=== PATIENT | female | born 1955 | race Caucasian/White ===

== ENCOUNTER 2020-05-31 08:32 | Outpatient (REF) | payer MEDICARE, SELFPAY ==
--- NOTE | 2020-05-31 08:45 | MM_ITS ---
EXAMINATION: MM SCREENING DIGITAL BREAST TOMOSYNTHESIS, BILATERAL CLINICAL INFORMATION: Screening. Asymptomatic. The lifetime risk of breast cancer based on the Tyrer-Cuzick Model is 11%. COMPARISON: Mammography: 05/08/2019, and prior studies dating back to 05/06/2012 TECHNIQUE: Digital breast tomosynthesis is performed in both the craniocaudal and mediolateral oblique views along with computer-aided detection (CAD). Synthesized 2D images are generated from the tomosynthesis. Additional left CC view is provided. FINDINGS: There are scattered areas of fibroglandular density (ACR BI-RADS breast composition Category b). Breast tissue composition borders on predominantly fatty. Background stromal densities are stable including island fibroglandular asymmetry anterior 12:00 left breast. There is no developing density or interval mass or architectural abnormality. Dermal lesion again seen overlying the posterior medial right breast. There are no abnormal calcifications. The axilla and skin contours are unremarkable. MM/MM tomosynthesis screening BI IMPRESSION: No significant changes from prior exams. ASSESSMENT: BI-RADS 2: Benign RECOMMENDATION: Routine annual mammography screening. This patient's information was entered into a reminder system with a target due date for their next mammogram.
== END 2020-05-31 08:33 | disposition home or self-care (01) ==
LOC: HO.MAMMO 08:32
PROVIDERS: PCP Internal Medicine; Visit Provider Internal Medicine
DX: Z12.31 Encounter for screening mammogram for malignant neoplasm of breast (principal)
CPT/HCPCS: 77063; 77067

== ENCOUNTER 2020-08-03 07:00 | Outpatient (REF) | payer MEDICARE, SELFPAY ==
--- NOTE | ~2020-08-03 | XR_ITS ---
EXAMINATION: XR LUMBOSACRAL SPINE CLINICAL INFORMATION: Chronic low back pain. COMPARISON: None. TECHNIQUE: 3 views of the lumbosacral spine. FINDINGS: There is normal lumbar lordosis. The vertebral heights and alignment appears normal. There is mild levoscoliosis lumbar spine. No lytic or sclerotic process seen. The paravertebral soft tissues are normal. XR/XR lumbar spine 2-3V IMPRESSION: Mild levoscoliosis. Otherwise unremarkable lumbar spine exam.
== END 2020-08-03 07:01 | disposition home or self-care (01) ==
LOC: HO.XRAY 07:00
PROVIDERS: PCP Internal Medicine; Visit Provider Chiropractor
DX: M54.5 Low back pain (principal)
CPT/HCPCS: 72100

== ENCOUNTER 2020-12-24 07:56 | Outpatient (REF) | payer MEDICARE, SELFPAY ==
--- NOTE | ~2020-12-24 | XR_ITS ---
EXAMINATION: XR THORACOLUMBAR SPINE CLINICAL INFORMATION: Back pain and spasm. COMPARISON: None. TECHNIQUE: AP and lateral views of the thoracic spine. FINDINGS: There is no evidence of acute fracture of the thoracic spine. Pedicles are intact. Multilevel degenerative marginal spurring is seen with some disc space narrowing. No abnormal paraspinal line bulge. No destructive bony lesions are seen. There is degenerative disc disease with spurring noted at C4-C7. XR/XR thoracic spine 2V IMPRESSION: Mild degenerative change of the thoracic spine without evidence of acute fracture or destructive bony lesion. Cervical spondylosis C4-C7.
== END 2020-12-24 07:57 | disposition home or self-care (01) ==
LOC: HO.XRAY 07:56
PROVIDERS: Absent Provider Internal Medicine; PCP Internal Medicine; Visit Provider Nurse Practitioner Women's Health
DX: M41.24 Other idiopathic scoliosis, thoracic region (principal)
CPT/HCPCS: 72070

== ENCOUNTER 2021-02-19 07:26 | Outpatient (REF) | payer MEDICARE, SELFPAY ==
[2021-02-19 07:38] LABS: MANUAL DIFF FLAG NO
[2021-02-19 08:01] LABS: Basophils Percent Auto 0.4 % (0-2); Eosinophils Absolute Auto 0.1 X10*3/uL (0.0-0.4); Hematocrit 40.2 % (37-47); Hemoglobin 13.5 g/dl (12.0-16.0); Imm Gran Abs Auto 0.01 X10*3/uL (0.00-0.03); Imm Gran Pct Auto 0.2 % (0.0-0.4); Lymphocytes Absolute Auto 1.8 X10*3/uL (1.2-4.9); Lymphocytes Percent Auto 36.6 % (20-40); Mean Corpuscular HGB Conc 33.6 g/dl (31.0-35.0); Mean Corpuscular Hemoglobin 32.2 pg (27.0-33.0); Mean Corpuscular Volume 95.9 fL (80-98); Mean Platelet Volume 10.4 fL (9.4-12.3); Monocytes Absolute Auto 0.5 X10*3/uL (0.1-1.2); Monocytes Percent Auto 10.3 % (2-11); Neutrophils Absolute Auto 2.5 X10*3/uL (2.0-8.3); Neutrophils Percent Auto 50.5 % (45-73); Platelet Count 260 X10*3/uL (160-400); Red Blood Count 4.19 X10*6/uL (4.20-5.50)
[2021-02-19 08:20] LABS: Alanine Aminotransferase 26 U/L (0-31); Albumin Level 4.3 g/dL (3.5-5.0); Alkaline Phosphatase 69 U/L (39-117); Anion Gap 11 (12-20); Aspartate Amino Transferase 25 U/L (5-31); Bilirubin Total 0.2 mg/dL (0.0-1.0); Blood Urea Nitrogen 20 mg/dL (9-16); Calcium 9.7 mg/dL (8.4-10.2); Carbon Dioxide 28 mmol/L (22-29); Chloride 107 mmol/L (96-108); Cholesterol 212 mg/dL; Estimated Glomerular Filt Rate > 60; Glucose Fasting 107 mg/dL (60-99); HDL Cholesterol 75 mg/dL; LDL Cholesterol Calculated 122 mg/dl; Potassium 4.4 mmol/L (3.3-5.1); Sodium 142 mmol/L (135-145); Total Protein 6.9 g/dL (6.5-8.0); Triglycerides 78 mg/dL
[2021-02-19 08:41] LABS: Free T4 (Free Thyroxine) 0.96 ng/dL (0.71-1.85); Vitamin D 25-OH Total 51.1 ng/mL (>30)
== END 2021-02-19 07:27 | disposition home or self-care (01) ==
LOC: HO.LAB 07:26
PROVIDERS: PCP Internal Medicine; Visit Provider Internal Medicine
DX: E78.00 Pure hypercholesterolemia, unspecified (principal); M54.9 Dorsalgia, unspecified; R63.4 Abnormal weight loss; M85.80 Other specified disorders of bone density and structure, unspecified site
CPT/HCPCS: 36415; 80053; 80061; 82306; 84439; 84443; 85025

== ENCOUNTER 2021-06-29 12:36 | Outpatient (REF) | payer MEDICARE, SELFPAY ==
--- NOTE | ~2021-06-29 | MM_ITS ---
EXAMINATION: MM SCREENING DIGITAL BREAST TOMOSYNTHESIS, BILATERAL CLINICAL INFORMATION: Screening. Asymptomatic. The lifetime risk of breast cancer based on the Tyrer-Cuzick Model is 11%. COMPARISON: Mammography: 05/31/2020, 05/08/2019, 04/09/2018 TECHNIQUE: Digital breast tomosynthesis is performed in both the craniocaudal and mediolateral oblique views along with computer-aided detection (CAD). Synthesized 2D images are generated from the tomosynthesis. FINDINGS: There are scattered areas of fibroglandular density (ACR BI-RADS breast composition Category b). Breast tissue composition borders on predominantly fatty replaced. Background fibroglandular and stromal densities are stable. There is no interval mass or architectural abnormality or developing density. No abnormal calcifications. There is a dermal lesion overlying the posterior lower inner right breast again noted. No significant changes from prior studies. MM/MM tomosynthesis screening BI IMPRESSION: No mammographic evidence of malignancy. ASSESSMENT: BI-RADS 2: Benign RECOMMENDATION: Routine annual mammography screening. This patient's information was entered into a reminder system with a target due date for their next mammogram.
== END 2021-06-29 12:37 | disposition home or self-care (01) ==
LOC: HO.MAMMO 12:36
PROVIDERS: PCP Internal Medicine; Visit Provider Internal Medicine
DX: Z12.31 Encounter for screening mammogram for malignant neoplasm of breast (principal)
CPT/HCPCS: 77063; 77067

== ENCOUNTER 2022-03-31 07:28 | Outpatient (REF) | payer MEDICARE, SELFPAY ==
[2022-03-31 07:45] LABS: MANUAL DIFF FLAG NO
[2022-03-31 08:24] LABS: Basophils Percent Auto 0.8 % (0-2); Eosinophils Absolute Auto 0.4 X10*3/uL (0.0-0.4); Eosinophils Percent Auto 7.8 % (0-4); Hematocrit 39.7 % (37.0-47.0); Imm Gran Abs Auto 0.01 X10*3/uL (0.00-0.03); Imm Gran Pct Auto 0.2 % (0.0-0.4); Lymphocytes Absolute Auto 1.9 X10*3/uL (1.2-4.9); Mean Corpuscular HGB Conc 32.7 g/dl (31.0-35.0); Mean Corpuscular Hemoglobin 31.6 pg (27.0-33.0); Mean Corpuscular Volume 96.4 fL (80.0-98.0); Mean Platelet Volume 10.8 fL (9.4-12.3); Monocytes Absolute Auto 0.6 X10*3/uL (0.1-1.2); Monocytes Percent Auto 11.5 % (2-11); Neutrophils Absolute Auto 1.9 x10*3/uL (2.0-8.3); Neutrophils Percent Auto 39.7 % (45-73); Platelet Count 272 X10*3/uL (160-400); Red Blood Count 4.12 X10*6/uL (4.20-5.50); Red Cell Distribution Width 13.2 % (11.0-16.0); White Blood Count 4.9 X10*3/uL (4.8-10.8)
[2022-03-31 08:46] LABS: Alanine Aminotransferase 22 U/L (0-31); Albumin Level 4.1 g/dL (3.5-5.0); Alkaline Phosphatase 72 U/L (39-117); Anion Gap 13 (12-20); Aspartate Amino Transferase 23 U/L (5-31); Bilirubin Total 0.6 mg/dL (0.0-1.0); Blood Urea Nitrogen 20 mg/dL (9-16); Calcium 9.5 mg/dL (8.4-10.2); Carbon Dioxide 27 mmol/L (22-29); Chloride 105 mmol/L (96-108); Cholesterol 219 mg/dL; Estimated Glomerular Filt Rate > 60; Glucose Fasting 94 mg/dL (60-99); HDL Cholesterol 65 mg/dL; LDL Cholesterol Calculated 135 mg/dl; Potassium 4.4 mmol/L (3.3-5.1); Sodium 141 mmol/L (135-145); Total Protein 6.8 g/dL (6.5-8.0); Triglycerides 96 mg/dL
== END 2022-03-31 07:29 | disposition home or self-care (01) ==
LOC: HO.LAB 07:28
PROVIDERS: PCP Internal Medicine; Visit Provider Internal Medicine
DX: E78.00 Pure hypercholesterolemia, unspecified (principal); M54.9 Dorsalgia, unspecified
CPT/HCPCS: 36415; 80053; 80061; 85025

== ENCOUNTER 2022-04-12 12:47 | Outpatient (REF) | payer MEDICARE, SELFPAY ==
--- NOTE | ~2022-04-12 | MM_ITS ---
EXAMINATION: BONE DENSITOMETRY CLINICAL INDICATION: Postmenopausal. COMPARISON: Baseline BD dated 06/26/2013. TECHNIQUE: Using a [employer] DXA System (software version: 13.1) manufactured by [employer], dual-energy x-ray absorptiometry was performed of the lumbar spine and left hip. The images are of good technical quality. Summary results are attached. FINDINGS: AP SPINE L1-L4: Current: BMD 0.778 g/cm2, Z-score -2.4, T-score -3.3, osteoporosis, 6.4% decrease from baseline (<5% change is not significant). Baseline: BMD 0.831 g/cm2. LEFT FEMUR, NECK: Current: BMD 0.797 g/cm2, Z-score -0.6, T-score -1.7, osteopenia. Baseline: BMD 0.859 g/cm2. LEFT FEMUR, TOTAL: Current: BMD 0.820 g/cm2, Z-score -0.6, T-score -1.5, osteopenia, 4.7% decrease from baseline (<5% change is not significant). Baseline: BMD 0.860 g/cm2. IDENTIFIED RISK FACTORS: Menopause, family history (parental hip fracture). HISTORY OF FRACTURE: None listed. MEDICATIONS: Vitamin D. MM/XR DEXA axial skeleton IMPRESSION: 1. DIAGNOSIS: Osteoporosis based on the lowest T-score value of -3.3 in the lumbar spine applying World Health Organization criteria. 2. 10-YEAR FRACTURE RISK PREDICTION, FRAX: According to the guidelines, FRAX calculation should only be performed on patients in the osteopenia bone density category. Therefore, FRAX was not performed on this patient. 3. Treatment Recommendations: NOF guidelines recommend consideration for treatment in postmenopausal women and men age 50 and older presenting with the following: -A hip or vertebral (clinical or morphometric) fracture. -T-score less than or equal to -2.5 at the femoral neck or spine after appropriate evaluation to exclude secondary causes. -Low bone mass at the hip or spine and a 10-year fracture probability by FRAX of greater than or equal to 3% for hip fracture or greater than or equal to 20% for major osteoporotic fracture based on the [place] adapted WHO algorithm. 4. Other Recommendations: All treatment decisions require clinical judgment and consideration of individual patient factors, including patient preferences, comorbidities, previous drug use, risk factors not captured in the FRAX model (e.g. frailty, falls, vitamin D deficiency, increased bone turnover, interval significant decline in bone density) and possible under or overestimation of fracture risk by FRAX. Additional medical evaluation for secondary cause of low bone mineral density may be appropriate. FUTURE SCAN RECOMMENDATION: People with diagnosed cases of osteoporosis or at high risk for fracture should have regular bone mineral density tests. For patients eligible for Medicare, routine testing is allowed once every 2 years. The testing frequency can be increased to one year for patients who have rapidly progressing disease, those who are receiving or discontinuing medical therapy to restore bone mass, or have additional risk factors.
== END 2022-04-12 12:48 | disposition home or self-care (01) ==
LOC: HO.MAMMO 12:47
PROVIDERS: PCP Internal Medicine; Visit Provider Internal Medicine
DX: Z13.820 Encounter for screening for osteoporosis (principal); Z78.0 Asymptomatic menopausal state
CPT/HCPCS: 77080

== ENCOUNTER 2022-07-01 10:36 | Outpatient (REF) | payer MEDICARE, SELFPAY ==
--- NOTE | ~2022-07-01 | MM_ITS ---
EXAMINATION: MM SCREENING DIGITAL BREAST TOMOSYNTHESIS, BILATERAL CLINICAL INFORMATION: Screening. Asymptomatic. The lifetime risk of breast cancer based on the Tyrer-Cuzick Model is 8%. COMPARISON: Mammography: 06/29/2021, 05/31/2020, 05/08/2019 TECHNIQUE: Digital breast tomosynthesis is performed in both the craniocaudal and mediolateral oblique views along with computer-aided detection (CAD). Synthesized 2D images are generated from the tomosynthesis. FINDINGS: There are scattered areas of fibroglandular density (ACR BI-RADS breast composition Category b). There are no significant masses, abnormal calcifications, or other abnormalities. Breast tissue composition borders on predominantly fatty. Background stromal and fibroglandular densities are stable. There is a dermal lesion again seen overlying the posterior medial right breast. The axilla are unremarkable. MM/MM tomosynthesis screening BI IMPRESSION: No mammographic evidence of malignancy. ASSESSMENT: BI-RADS 2: Benign RECOMMENDATION: Routine annual mammography screening. This patient's information was entered into a reminder system with a target due date for their next mammogram.
== END 2022-07-01 10:37 | disposition home or self-care (01) ==
LOC: HO.MAMMO 10:36
PROVIDERS: PCP Internal Medicine; Visit Provider Internal Medicine
DX: Z12.31 Encounter for screening mammogram for malignant neoplasm of breast (principal)
CPT/HCPCS: 77063; 77067

== ENCOUNTER 2023-04-11 07:48 | Outpatient (REF) | payer MEDICARE, SELFPAY ==
[2023-04-11 08:10] LABS: MANUAL DIFF FLAG NO
[2023-04-11 08:34] LABS: Basophils Percent Auto 0.8 % (0-2); Eosinophils Absolute Auto 0.1 X10*3/uL (0.0-0.4); Eosinophils Percent Auto 2.1 % (0-4); Hematocrit 41.5 % (37.0-47.0); Hemoglobin 13.7 g/dl (12.0-16.0); Imm Gran Abs Auto 0.01 X10*3/uL (0.00-0.03); Imm Gran Pct Auto 0.2 % (0.0-0.4); Lymphocytes Absolute Auto 1.9 X10*3/uL (1.2-4.9); Lymphocytes Percent Auto 38.4 % (20-40); Mean Corpuscular Hemoglobin 32.2 pg (27.0-33.0); Mean Corpuscular Volume 97.4 fL (80.0-98.0); Mean Platelet Volume 10.6 fL (9.4-12.3); Monocytes Absolute Auto 0.5 X10*3/uL (0.1-1.2); Monocytes Percent Auto 10.5 % (2-11); Neutrophils Absolute Auto 2.3 x10*3/uL (2.0-8.3); Platelet Count 306 X10*3/uL (160-400); Red Blood Count 4.26 X10*6/uL (4.20-5.50); Red Cell Distribution Width 12.8 % (11.0-16.0); White Blood Count 4.8 X10*3/uL (4.8-10.8)
[2023-04-11 08:55] LABS: Alanine Aminotransferase 33 U/L (0-31); Albumin Level 4.2 g/dL (3.5-5.0); Alkaline Phosphatase 81 U/L (39-117); Anion Gap 12 (12-20); Aspartate Amino Transferase 24 U/L (5-31); Bilirubin Total 0.6 mg/dL (0.0-1.0); Blood Urea Nitrogen 19 mg/dL (9-16); Calcium 9.8 mg/dL (8.4-10.2); Carbon Dioxide 28 mmol/L (22-29); Chloride 106 mmol/L (96-108); Cholesterol 227 mg/dL (<200); Estimated Glomerular Filt Rate > 60; Glucose Fasting 97 mg/dL (60-99); HDL Cholesterol 72 mg/dL (>40); LDL Cholesterol Calculated 141 mg/dL (<100); Potassium 4.6 mmol/L (3.3-5.1); Sodium 141 mmol/L (135-145); Total Protein 7.4 g/dL (6.5-8.0); Triglycerides 71 mg/dL (<150)
[2023-04-11 09:13] LABS: Vitamin D 25-OH Total 79.5 ng/mL (>30)
== END 2023-04-11 07:49 | disposition home or self-care (01) ==
LOC: HO.LAB 07:48
PROVIDERS: PCP Internal Medicine; Visit Provider Internal Medicine
DX: E78.00 Pure hypercholesterolemia, unspecified (principal); M85.80 Other specified disorders of bone density and structure, unspecified site; M54.9 Dorsalgia, unspecified
CPT/HCPCS: 36415; 80053; 80061; 82306; 85025

== ENCOUNTER 2023-07-04 08:10 | Outpatient (REF) | payer MEDICARE, SELFPAY | END 2023-07-04 08:11 | disposition home or self-care (01) | LOC: HO.MAMMO 08:10 | PROVIDERS: PCP Internal Medicine; Visit Provider Internal Medicine | DX: Z12.31 Encounter for screening mammogram for malignant neoplasm of breast (principal) | CPT/HCPCS: 77063; 77067 ==

== ENCOUNTER → 2023-07-04 08:45 | Outpatient (BNV) | payer MEDICARE, SELFPAY | PROVIDERS: PCP Internal Medicine; Visit Provider Radiology Diagnostic Radiology | DX: Z12.31 Encounter for screening mammogram for malignant neoplasm of breast (principal) | CPT/HCPCS: 77063; 77067 ==

== ENCOUNTER 2024-03-28 09:40 | Outpatient (REF) | payer MEDICARE, SELFPAY ==
[2024-03-28 10:47] LABS: Basophils Percent Auto 0.4 % (0-2); Eosinophils Absolute Auto 0.1 X10*3/uL (0.0-0.4); Hematocrit 39.5 % (37.0-47.0); Hemoglobin 13.5 g/dl (12.0-16.0); Imm Gran Abs Auto 0.02 X10*3/uL (0.00-0.03); Imm Gran Pct Auto 0.4 % (0.0-0.4); Lymphocytes Absolute Auto 1.8 X10*3/uL (1.2-4.9); Lymphocytes Percent Auto 35.5 % (20-40); MANUAL DIFF FLAG NO; Mean Corpuscular HGB Conc 34.2 g/dl (31.0-35.0); Mean Corpuscular Hemoglobin 32.5 pg (27.0-33.0); Mean Platelet Volume 10.3 fL (9.4-12.3); Monocytes Absolute Auto 0.6 X10*3/uL (0.1-1.2); Monocytes Percent Auto 11.6 % (2-11); Neutrophils Absolute Auto 2.5 x10*3/uL (2.0-8.3); Neutrophils Percent Auto 50.1 % (45-73); Platelet Count 258 X10*3/uL (160-400); Red Blood Count 4.16 X10*6/uL (4.20-5.50); Red Cell Distribution Width 13.2 % (11.0-16.0)
[2024-03-28 12:06] LABS: Alanine Aminotransferase 19 U/L (0-31); Albumin Level 4.2 g/dL (3.5-5.0); Alkaline Phosphatase 48 U/L (39-117); Anion Gap 15 (12-20); Aspartate Amino Transferase 24 U/L (5-31); Bilirubin Total 0.5 mg/dL (0.0-1.0); Blood Urea Nitrogen 22 mg/dL (9-16); Calcium 9.4 mg/dL (8.4-10.2); Carbon Dioxide 25 mmol/L (22-29); Chloride 104 mmol/L (96-108); Cholesterol 227 mg/dL (<200); Estimated Glomerular Filt Rate > 60; Glucose Fasting 89 mg/dL (60-99); HDL Cholesterol 68 mg/dL (>40); LDL Cholesterol Calculated 145 mg/dL (<100); Potassium 4.2 mmol/L (3.3-5.1); Sodium 140 mmol/L (135-145); Total Protein 7.2 g/dL (6.5-8.0); Triglycerides 71 mg/dL (<150)
[2024-03-28 12:25] LABS: Vitamin D 25-OH Total 66.9 ng/mL (>30)
== END 2024-03-28 09:41 | disposition home or self-care (01) ==
LOC: HO.LAB 09:40
PROVIDERS: PCP Internal Medicine; Visit Provider Internal Medicine
DX: E78.00 Pure hypercholesterolemia, unspecified (principal); M54.50 Low back pain, unspecified; M81.0 Age-related osteoporosis without current pathological fracture
CPT/HCPCS: 36415; 80053; 80061; 82306; 85025

== ENCOUNTER 2024-05-09 07:48 | Outpatient (REF) | payer MEDICARE, SELFPAY ==
[2024-05-09 09:04] LABS: Cholesterol 220 mg/dL (<200); HDL Cholesterol 71 mg/dL (>40); LDL Cholesterol Calculated 135 mg/dL (<100); Triglycerides 71 mg/dL (<150)
== END 2024-05-09 07:49 | disposition home or self-care (01) ==
LOC: HO.LAB 07:48
PROVIDERS: PCP Internal Medicine; Visit Provider Internal Medicine
DX: E78.00 Pure hypercholesterolemia, unspecified (principal)
CPT/HCPCS: 36415; 80061

== ENCOUNTER 2024-06-22 09:51 | Emergency (ER) | payer MEDICARE, SELFPAY ==
[2024-06-22 09:57] VITALS: BP 162/88; PULSE 75; RESP 16; TEMP 36.4; O2SAT 98; BMI 30.7
--- NOTE | 2024-06-22 10:26 | ED.EYEPROB ---
HPI - Eye Problem General Chief complaint: Eye Problems Stated complaint: eye swollen Time Seen by Provider: 06/22/24 10:20 Source: patient Mode of arrival: ambulatory Limitations: no limitations History of Present Illness ED Provider: JUAN M YEN PA-C HPI Narrative: 68 year old female presents to the ED today for evaluation of right eye tearing, irritation, redness and swelling x2-3 days. Denies significant pain. Does not recall getting anything in the eye. Denies morning crusting. Denies injury/ trauma. Denies FB sensation. Denies recent upper respiratory symptoms (congestion, cough, sinus pain, fever). She has been applying hot tea bags without improvement. Trialed and OTC oral antihistamine yesterday without improvement. Endorses mild blurred vision to right eye secondary to excessive tearing. No vision loss or double vision. Patient does wear glasses however does not use contact lenses. 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 No hx DM. Related Data Previous Rx's ?Medication ?Instructions ?Recorded erythromycin 5 mg/gram (0.5 %) eye 1 appl ophthalmic-Right QID 7 days 06/22/24 ointment #3.5 grams Allergies Allergy/AdvReac Type Severity Reaction Status Date / Time No Known Allergies Allergy Verified 06/22/24 09:58 Review of Systems Review of Systems: Constitutional: No fever, chills, fatigue, night sweats, weight changes ENT/Mouth: No ear pain, hearing loss, nasal congestion, sinus pain, rhinorrhea, sore throat Eyes: No vision changes, discharge, +eye irritation/ tearing Cardio: No chest pain, palpitations, SCOTT, orthopnea, peripheral edema Pulm: No SOB, cough, sputum, wheezing, dyspnea, hemoptysis GI: No nausea, vomiting, hematemesis, abdominal pain, diarrhea, constipation, hematochezia, melena : No irregular bleeding, dysuria, frequency, urgency, hesitancy, hematuria, flank pain, urinary flow changes, urinary incontinence or retention MSK: No back pain, neck pain, joint pain, myalgias Skin: No lesions, rashes Neuro: No weakness, numbness, paresthesias, LOC, dizziness, headache Psych: No anxiety/panic, depression, SI/HI, AH/VH All other systems reviewed and are negative. [facility] Past Medical History Attestation statement: The following information was validated with the patient. Source: old records reviewed and nursing notes reviewed Social History Social History Advance Directives: Yes Advance Directives Information Provided: Yes Advance Directives on File: No Do you have a plan to hurt others: No Plan Physical Exam Vital Signs: Vital Signs: Last Vital Signs Temp 97.6 F 06/22/24 11:34 Pulse 75 06/22/24 11:34 Resp 16 06/22/24 11:34 BP 162/88 H 06/22/24 11:34 Pulse Ox 98 06/22/24 11:34 O2 Del Method Room Air 06/22/24 11:34 BMI result Body Mass Index 30.7 hypertensive, afebrile General: Well appearing, in no acute distress. Skin: Warm, dry, intact. No rashes or lesions. Head: Normocephalic, atraumatic. EENT: Hearing is intact b/l. Moist mucous membranes.?nontender to percussion over frontal/ maxillary sinuses. No periorbital swelling. No enophthalmous or exopthalmous. EOMs intact without pain or entrapment. PERRLA. Positive photophobia to right eye. No obvious foreign body or abrasion. Noted conjunctival injection and chemosis noted to right eye. No hazy cornea. No hyphema. Visual acuity (uncorrected) OD 20/70, OS 20/100. IOP OD 17, IOP OS 12. On tetracaine exam, there is reuptake noted to 4oclock suggesting abrasion to cornea w/o fb. no dendritic lesions. Neck: Supple without LAD Cardiac: Chest wall symmetric. RRR Lungs: Normal respiratory effort without accessory muscle use Neuro: AOx3. Normal speech. Ambulating with steady gait. Course Course Course Narrative: Physical exam consistent with corneal abrasion to right eye. Erythromycin ointment sent to pharmacy for treatment. Informed patient that they will need to follow-up with conveyor line battery charger. She will be calling them tomorrow morning. Patient has remained stable throughout ED visit today. Discussed worrisome signs and symptoms and when to return to the ED. All questions answered at this time. Patient is agreeable with disposition and stable for discharge. Medications Administered Discontinued Medications Generic Name Dose Route Start Last Admin Trade Name Freq PRN Reason Stop Dose Admin Fluorescein Sodium 1 strip 06/22/24 10:41 06/22/24 10:48 Fluorescein Sodium Strip EYE-RIGHT 06/22/24 10:42 1 strip ONCE ONE Administration Tetracaine HCl 1 drop 06/22/24 10:41 06/22/24 10:48 Tetracaine Hcl/Pf 0.5% Oph Criselda 4 Ml Drops EYE-RIGHT 06/22/24 10:42 1 drop ONCE ONE Administration Medical Decision Making Medical Decision Making MDM Narrative: 68 year old female presents to the ED today for evaluation of right eye tearing, irritation, redness and swelling x2-3 days. Hypertensive, vitals are otherwise wnl. She is nontoxic appearing and in NAD. On exam, there is no periorbital swelling. No enophthalmous or exopthalmous. EOMs intact without pain or entrapment. PERRLA. Positive photophobia to right eye. No obvious foreign body or abrasion. Noted conjunctival injection and chemosis noted to right eye. No hazy cornea. No hyphema. Visual acuity (uncorrected) OD 20/70, OS 20/100. IOP OD 17, IOP OS 12. On tetracaine exam, there is reuptake noted to 4oclock suggesting abrasion to cornea w/o fb. no dendritic lesions. Differential diagnosis includes corneal abrasion, corneal ulceration, corneal FB, allergic vs bacterial conjunctivitis. Lower suspicion for iritis, keratitis. Unlikely pre-septal cellulitis, orbital cellulitis, acute angle closure glaucoma. Plan for tetracaine/fluorescein examination, IOP, VA, and disposition. Differential Diagnosis Differential Diagnoses: The differential diagnosis associated with the presentation includes as above. Admission/Observation Not indicated. External Record Review External record reviewed: Inpatient record Prescription Management I considered prescription management with: Antibiotic (erythromycin ointment) Social Determinants Patient?s care significantly limited by Social Determinants of Health including: Other Social Determinant of Health Critical Care Time Critical Care Time Critical Care Time: No Discharge Plan Discharge Clinical Impression: Corneal abrasion Patient Disposition: Home, Self-Care Instructions: Corneal Abrasion (ED) Additional Instructions: You are noted to have a corneal abrasion to your right cornea. Treatment for this is with antibiotics. Erythromycin ointment has been sent to your pharmacy. Apply this to your eye as directed. Do not wear contacts until you follow up with your provider. As discussed, follow up with your conveyor line battery charger on Sunday morning. Return with new or worsening symptoms. In the case of an emergency, call 911. Prescriptions: New erythromycin 5 mg/gram (0.5 %) ointment 1 appl ophthalmic-Right QID 7 Days Qty: 3.5 0RF Referrals: Toney Pires MD [Primary Care Provider] - Interventions: ED Discharge Assessment Last Done: 06/22/24 11:34 Discharge Date/Time: 06/22/24 11:35 Print Language: Niuean
[2024-06-22] MEDS: Fluorescein Sodium STRIP 1 STRIP EYE-RIGHT (10:48)
[2024-06-22] MEDS: Tetracaine HCl/PF 0.5% Oph Sol 4 ML DROPS 1 DROP EYE-RIGHT (10:48)
[2024-06-22 11:34] VITALS: BP 162/88; PULSE 75; RESP 16; TEMP 36.4; O2SAT 98
== END 2024-06-22 11:35 | disposition home or self-care (01) ==
PROVIDERS: Emergency Provider Emergency Medicine; PCP Internal Medicine
DX: S05.01XA Injury of conjunctiva and corneal abrasion without foreign body, right eye, initial encounter (principal); X58.XXXA Exposure to other specified factors, initial encounter; Y93.89 Activity, other specified; Y92.89 Other specified places as the place of occurrence of the external cause; Y99.8 Other external cause status
CPT/HCPCS: 99282

== ENCOUNTER 2024-08-11 11:53 | Outpatient (REF) | payer MEDICARE, SELFPAY ==
--- NOTE | ~2024-08-11 | MM_ITS ---
EXAMINATION: MM SCREENING DIGITAL BREAST TOMOSYNTHESIS, BILATERAL CLINICAL INFORMATION: Screening. Asymptomatic. COMPARISON: Mammography: Comparison is made with available priors TECHNIQUE: Digital breast mammography with tomosynthesis is performed in both the craniocaudal and mediolateral oblique views along with computer-aided detection (CAD). FINDINGS: There are scattered areas of fibroglandular density (ACR BI-RADS breast composition Category b). There are no significant masses, abnormal calcifications, or other abnormalities. MM/MM tomosynthesis screening BI IMPRESSION: No mammographic evidence of malignancy. ASSESSMENT: BI-RADS BI-RADS 1 - Negative RECOMMENDATION: Routine annual mammography screening. 1 year F/U This examination should not preclude the clinical evaluation of a suspicious palpable abnormality. This patient's information was entered into a reminder system with a target due date for their next mammogram. Electronically signed by: Faye Lundberg DO 08/11/2024 12:47 PM EDT
== END 2024-08-11 11:54 | disposition home or self-care (01) ==
LOC: HO.MAMMO 11:53
PROVIDERS: PCP Internal Medicine; Visit Provider Internal Medicine
DX: Z12.31 Encounter for screening mammogram for malignant neoplasm of breast (principal)
CPT/HCPCS: 77063; 77067

== ENCOUNTER → 2024-08-11 12:15 | Outpatient (BNV) | payer MEDICARE, SELFPAY | PROVIDERS: PCP Internal Medicine; Visit Provider Internal Medicine | DX: Z12.31 Encounter for screening mammogram for malignant neoplasm of breast (principal) | CPT/HCPCS: 77063; 77067 ==

== ENCOUNTER 2025-03-27 08:04 | Outpatient (AMB) | payer MEDICARE, SELFPAY ==
--- OUTSIDE RECORDS SUMMARY | 2025-03-27 08:07 | XMS_ITS | Encounter Summary ---
Author Organization [facility] Address [address] [place] [address] Phone Care Team Providers Care Block Hacker Name Role Phone Toney Pires MD Primary Care Provider Reason for Referral * MRI/CAT Scan - Closed Specialty Diagnoses / Procedures Referred By Contac t Referred To Contact Radiology Diagnoses Other intervertebral disc degeneration, lumbar region Procedures MRI Lumbar Spine Nataliia Rollins NP [address] [place] [address] Phone: tel: fax: [email or web address] Referral ID Status Reason Start Date Expiration Date Visits Re quested Visits Authorized [id number] Closed 03/28/2021 03/28/2022 1 1 Encounter Details Date Type Department Care Team (Latest Contact Info) Description 03/28/2021 Transcribe Orders Virtual Department [address] [place] [id number] Nataliia Rollins NP [address] [place] [phone] [email or web address] Other intervertebral disc degeneration, lumbar region (Primary Dx) Social History Tobacco Use Types Packs/Day Years Used Date Smoking Tobacco: Never Assessed Comments Unknown Sex and Gender Information Value Date Recorded Sex Assigned at Not on file Legal Sex Female 3:14 PM EST Gender Identity Not on file Sexual Orientation Not on file documented as of this encounter Plan of Treatment Not on file documented as of this encounter Results * MRI LUMBAR SPINE (NEURO) WITHOUT CONTRAST (04/22/2021 3:38 PM EST) Anatomical Region Laterality Modality L-spine Magnetic Resonan ce 04/22/2021 5:17 PM EST Impressions 04/22/2021 5:43 PM EST 1.Multilevel facet arthropathy, greatest at L4-L5 with a moderate sized right- sided synovial effusion. 2.Mild multilevel degenerative disc disease. No significant spinal canal or neural foraminal stenosis. 3.Indeterminate and incompletely evaluated 1.5 cm T1 hypointense lesion in the T12 vertebral body. In the absence of known malignancy this is favored to represent focal red marrow or a lipid poor hemangioma; however, follow-up (for example 4 months) and/or further evaluation with CT is recommended to document stability. Narrative 04/22/2021 5:43 PM EST MRI LUMBAR SPINE (NEURO) WITHOUT CONTRAST TECHNIQUE: Multi-sequence, multi-planar MRI of the lumbar spine was performed without intravenous contrast. COMPARISON: None available FINDINGS: Vertebrae: Trace anterolisthesis of L4 on L5. No compression fracture. There is a 1.5 cm rounded lesion in the right inferior posterior aspect of the T12 vertebral body without endplate involvement. The lesion is T1 hypointense and T2/STIR hyperintense. Conus: Normal position at L1-L2. No signal abnormality. Soft Tissue: No paraspinal edema, mass or fluid collection. Findings by level: T12-L1: Axial imaging not performed at this level. No spinal canal or neural foraminal stenosis. L1-L2: Small right paracentral disc protrusion. Mild facet arthropathy with small synovial effusions bilaterally. No spinal canal or neural foraminal stenosis. L2-L3: Mild facet arthropathy with small synovial effusions bilaterally. No spinal canal or neural foraminal stenosis. L3-L4: Mild disc bulge and mild to moderate facet arthropathy with ligamentum flavum thickening and small synovial effusions bilaterally at most mild neural foraminal stenosis bilaterally. No spinal canal stenosis. L4-L5: Trace anterolisthesis with unroofing of the disc superimposed on a small central disc protrusion. Moderate to severe left greater than right facet arthropathy with a moderate right synovial effusion. No neural foraminal stenosis. Mild effacement of the thecal sac without significant spinal canal stenosis. L5-S1: Mild disc bulge and moderate left greater than right facet arthropathy. Mild left neural foraminal stenosis. No right neural foraminal stenosis and no spinal canal stenosis. Procedure Note Jaylen Aviles MD - 04/22/2021 MRI LUMBAR SPINE (NEURO) WITHOUT CONTRAST TECHNIQUE: Multi-sequence, multi-planar MRI of the lumbar spine wasperformed without intravenous contrast. COMPARISON: None available FINDINGS: Vertebrae: Trace anterolisthesis of L4 on L5. No compression fracture.There is a 1.5 cm rounded lesion in the right inferior posterior aspect ofthe T12 vertebral body without endplate involvement. The lesion is [id number] and T2/STIR hyperintense. Conus: Normal position at L1-L2. No signal abnormality. Soft Tissue: No paraspinal edema, mass or fluid collection. Findings by level: T12-L1: Axial imaging not performed at this level. No spinal canal orneural foraminal stenosis. L1-L2: Small right paracentral disc protrusion. Mild facet arthropathywith small synovial effusions bilaterally. No spinal canal or neuralforaminal stenosis. L2-L3: Mild facet arthropathy with small synovial effusions bilaterally.No spinal canal or neural foraminal stenosis. L3-L4: Mild disc bulge and mild to moderate facet arthropathy withligamentum flavum thickening and small synovial effusions bilaterally atmost mild neural foraminal stenosis bilaterally. No spinal canalstenosis. L4-L5: Trace anterolisthesis with unroofing of the disc superimposed on asmall central disc protrusion. Moderate to severe left greater than rightfacet arthropathy with a moderate right synovial effusion. No neuralforaminal stenosis. Mild effacement of the thecal sac without significantspinal canal stenosis. L5-S1: Mild disc bulge and moderate left greater than right facetarthropathy. Mild left neural foraminal stenosis. No right neuralforaminal stenosis and no spinal canal stenosis. IMPRESSION: 1.Multilevel facet arthropathy, greatest at L4-L5 with a moderate sizedright- sided synovial effusion. 2.Mild multilevel degenerative disc disease. No significant spinal canalor neural foraminal stenosis. 3.Indeterminate and incompletely evaluated 1.5 cm T1 hypointense lesion inthe T12 vertebral body. In the absence of known malignancy this is favoredto represent focal red marrow or a lipid poor hemangioma; however,follow-up (for example 4 months) and/or further evaluation with CT isrecommended to document stability. us Nataliia Rollins NP IMG MR [facility]SPECIALTY Final Result documented in this encounter Visit Diagnoses Diagnosis Other intervertebral disc degeneration, lumbar region- Primary Other intervertebral disc degeneration, lumbar region documented in this encounter Care Teams Block Hacker Relationship Specialty Start Date End Date Toney Pires MD [address] [place] [address] [place] [address] PCP - General Internal Medicine 04/05/21 documented as of this encounter Additional Source Comments The information contained in this document represents components of the legal health record. It is not the complete legal health record.[facility]
--- OUTSIDE RECORDS SUMMARY | 2025-03-27 08:07 | XMS_ITS | Encounter Summary ---
Author Organization [facility] Address [address] [place] [address] [place] [phone] Phone Care Team Providers Care Medical Technologist Clinical Name Role Phone Toney Pires MD Primary Care Provider Encounter Details Date Type Department Care Team (Late st Contact Info) Description 02/18/2025 Ancillary Orders [facility], X-Ray - [address] [address] Nataliia Rollins NP [address] [place] [phone] [email or web address] Pain of joint of left ankle and foot (Primary Dx) Social History Tobacco Use Types Packs/Day Years Used Date Smoking Tobacco: Never Assessed Education Answer Date Recorded Are you interested in more education? Not on catherine e 09/16/2022 Are you concerned about learning? Not on file 09/16/2022 No 09/16/2022 No 09/16/2022 Digital Access Answer Date Recorded No 10/17/2022 No 10/17/2022 Reliable internet access at home? Not on file 10/17/2022 Device with a working camera? Not on file Comments Unknown Sex and Gender Information Value Date Recorded Sex Assigned at Not on file Legal Sex Female 3:14 PM EST Gender Identity Not on file Sexual Orientation Not on file documented as of this encounter Plan of Treatment Not on file documented as of this encounter Results * XR ANKLE 3 OR MORE VIEWS (LEFT) (02/18/2025 11:38 AM EDT) Anatomical Region Laterality Modality Ankle Left Computed Radiogr aphy 02/19/2025 7:42 AM EDT Impressions 02/19/2025 7:43 AM EDT No fracture or dislocation. Narrative 02/19/2025 7:43 AM EDT XR ANKLE 3 OR MORE VIEWS (LEFT), XR ANKLE 3 OR MORE VIEWS (RIGHT) Referring clinician's provided indication for this examination in [facility]: Pain COMPARISON: None FINDINGS: Left ankle: No fracture. Normal alignment. Symmetric ankle mortise. Normal joint spaces. No soft tissue swelling or ankle effusion. Right ankle: No fracture. Normal alignment. Symmetric ankle mortise. Normal joint spaces. No soft tissue swelling or ankle effusion. Bilateral calcaneal osteophytes. Procedure Note Russell Dumont MD, TIFFANY - 02/19/2025 XR ANKLE 3 OR MORE VIEWS (LEFT), XR ANKLE 3 OR MORE VIEWS (RIGHT) Referring clinician's provided indication for this examination in Epic:Pain COMPARISON: None FINDINGS: Left ankle: No fracture. Normal alignment. Symmetric ankle mortise. Normaljoint spaces. No soft tissue swelling or ankle effusion. Right ankle: No fracture. Normal alignment. Symmetric ankle mortise.Normal joint spaces. No soft tissue swelling or ankle effusion. Bilateral calcaneal osteophytes. IMPRESSION: No fracture or dislocation. us Nataliia Rollins PAN DEVULCANIZER IMG XR LOWER EXTREMITY Final Res ult documented in this encounter Visit Diagnoses Diagnosis Pain of joint of left ankle and foot- Primary Pain of joint of left ankle and foot documented in this encounter Care Teams Medical Technologist Clinical Relationship Specialty Start Date End Date Toney Pires MD [address] [place] [address] [place] [address] PCP - General Internal Medicine 04/05/21 documented as of this encounter Additional Source Comments The information contained in this document represents components of the legal health record. It is not the complete legal health record.[facility]
--- OUTSIDE RECORDS SUMMARY | 2025-03-27 08:07 | XMS_ITS | Encounter Summary ---
Author Organization [facility] Address [address] [facility] [address] [place] [address] Phone Care Team Providers Care Estimating Manager Name Role Phone Toney Pires MD Primary Care Provider Encounter Details Date Type Department Care Team (Late st Contact Info) Description 03/28/2021 Procedure Pass [facility], [address] [address] Social History Tobacco Use Types Packs/Day Years Used Date Smoking Tobacco: Never Assessed Comments Unknown Sex and Gender Information Value Date Recorded Sex Assigned at Not on file Legal Sex Female 3:14 PM EST Gender Identity Not on file Sexual Orientation Not on file documented as of this encounter Plan of Treatment Not on file documented as of this encounter Visit Diagnoses Not on filedocumented in this encounter Care Teams Estimating Manager Relationship Specialty Start Date End Date Toney Pires MD [address] [place] [address] [place] [address] PCP - General Internal Medicine 04/05/21 documented as of this encounter Additional Source Comments The information contained in this document represents components of the legal health record. It is not the complete legal health record.[facility]
--- OUTSIDE RECORDS SUMMARY | 2025-03-27 08:07 | XMS_ITS | Clinical Summary ---
Author Organization [facility] Address [address] [place], [place] [id number] Phone Care Team Providers Care Yarn Weight And Strength Tester Name Role Phone Toney Pires MD Primary Care Provider Encounters Date Type Department Care Team Description 02/18/2025 10:33 AM EDT - 02/18/2025 11:59 PM EDT Hospital Encounter [address] [address] Nataliia Rollins NP Discharge Disposition: Home or Self Care 02/18/2025 10:31 AM EDT - 02/18/2025 10:32 AM EDT Hospital Encounter [address] [address] Natlaiia Rollins NP Discharge Disposition: Home or Self Care 02/18/2025 Ancillary Orders [address] [address] Nataliia Rollins NP Pain in joint involving right ankle and foot (Primary Dx) 02/18/2025 Ancillary Orders [address] [address] Nataliia Rollins NP Pain of joint of left ankle and foot (Primary Dx) from Last 3 Months Social History Tobacco Use Types Packs/Day Years [...] on file Sexual Orientation Not on file Last Filed Vital Signs Vital Sign Reading Time Taken Comments Blood Pressure - - Pulse - - Temperature - - Respiratory Rate - - Oxygen Saturation - - Inhaled Oxygen Concentration - - Weight 88 kg (194 lb) 09/03/2021 10:43 AM EDT Height 170.2 cm (5' 7 ) 09/03/2021 10:43 AM EDT Body Mass Index 30.38 09/03/2021 10:43 AM EDT Plan of Treatment Health Maintenance Due Date Last Done Comments Adult Td,Tdap Booster 1953 LIPID PANEL 1953 DEPRESSION SCREENING 1965 SMOKING Hx and SMOKELESS TOBACCO SCREENING 1966 HEPATITIS C SCREENING 09/29/1971 MAMMOGRAM 1993 COLOGUARD 1998 COLONOSCOPY 1998 COLORECTAL CANCER SCREENING 1998 FIT TEST 1998 FOBT 1998 SIGMOIDOSCOPY 1998 VIRTUAL COLONOSCOPY 1998 PNEUMOCOCCAL VACCINES (50+ years) (1 of 1 - PCV) 09/29/2003 ZOSTER VACCINES (1 of 2) 09/29/2003 OSTEOPOROSIS SCREENING INITIAL (ONE-TIME) 2018 INFLUENZA VACCINE (#1) 2024 , 02/26/2019, 03/01/2018, Additional history exists COVID-19 VACCINE (2024- season) 2025 03/16/2021, 08/28/2020, 08/07/2020 RSV VACCINE (1 - 1-dose 75+ series) 2028 HEPATITIS A VACCINES Aged Out No long er eligible based on patient's age to complete this topic HIB VACCINES Aged Out No longer eligi ble based on patient's age to complete this topic MENINGOCOCCAL VACCINES (ACWY) Aged Out No longer eligible based on patient's age to complete this topic MENINGOCOCCAL VACCINES (B) Aged Out N o longer eligible based on patient's age to complete this topic Medical Devices Not on file Procedures Procedure Name Priority Date/Time Associated Diagnosis Comments XR ANKLE 3 OR MORE VIEWS (RIGHT) Routine 02/18/2025 11:38 AM EDT Pain in joint involving right ankle and foot XR ANKLE 3 OR MORE VIEWS (LEFT) Routine 02/18/2025 11:38 AM EDT Pain of joint of left ankle and foot from Last 3 Months Results * XR ANKLE 3 OR MORE VIEWS (RIGHT) (02/18/2025 11:38 AM EDT) Anatomical Region Laterality Modality Ankle Right Computed Radiogr aphy 02/19/2025 7:42 AM EDT Impressions 02/19/2025 7:43 AM EDT No fracture or dislocation. Narrative 02/19/2025 7:43 AM EDT XR ANKLE 3 OR MORE VIEWS (LEFT), XR ANKLE 3 OR MORE VIEWS (RIGHT) Referring clinician's provided indication for this examination in Epic: Pain COMPARISON: None FINDINGS: Left ankle: No [...] No fracture or dislocation. us Nataliia Rollins FOOD SANITARIAN IMG XR LOWER EXTREMITY Final Res ult * XR ANKLE 3 OR MORE VIEWS (LEFT) (02/18/2025 11:38 AM EDT) Anatomical Region Laterality Modality Ankle Left Computed Radiogr aphy 02/19/2025 7:42 AM EDT Impressions 02/19/2025 7:43 AM EDT No fracture or dislocation. Narrative 02/19/2025 7:43 AM EDT XR ANKLE 3 OR MORE VIEWS (LEFT), XR ANKLE 3 OR MORE VIEWS (RIGHT) Referring clinician's provided indication for this examination in Epic: Pain COMPARISON: None FINDINGS: Left ankle: No [...] calcaneal osteophytes. IMPRESSION: No fracture or dislocation. Nataliia Rollins NP IMG XR LOWER EXTREMITY Final Res ult from Last 3 Months Insurance MEDICARE PART A & B [facility] MEDEX SUPPLEMENT MEDICARE PART A & B [facility] [facility] [employer] MEDEX SUPPLEMENT MEDICARE PART A & B [facility] MEDEX SUPPLEMENT MEDICARE PART A & B [facility] MEDEX SUPPLEMENT MEDICARE PART A & B [facility] MEDEX SUPPLEMENT MEDICARE PART A & B [facility] MEDEX SUPPLEMENT MEDICARE PART A & B [facility] MEDEX SUPPLEMENT MEDICARE PART A & B [facility] MEDEX SUPPLEMENT MEDICARE PART A & B [facility] [facility] [employer] MEDEX SUPPLEMENT Care Teams Yarn Weight And Strength Tester Relationship Specialty Start Date End Date Toney Pires MD [address] [place] [address] [facility] [place] [address] PCP - General Internal Medicine 04/05/21 Additional Source Comments The information contained in this document represents components of the legal health record. It is not the complete legal health record.[facility]
--- OUTSIDE RECORDS SUMMARY | 2025-03-27 08:08 | XMS_ITS | Encounter Summary ---
Author Organization [facility] Address [address] [place] [address] [place] [address] Phone Care Team Providers Care Communications Planner Name Role Phone Toney Pires MD Primary Care Provider Encounter Details Date Type Department Care Team (Late st Contact Info) Description 02/18/2025 Ancillary Orders [facility], X-Ray - [address] [address] Nataliia Rollins NP [address] [place] [phone] [email or web address] Pain in joint involving right ankle and foot (Primary Dx) Social History [...] No fracture or dislocation. us Nataliia Rollins LACE SEWER IMG XR LOWER EXTREMITY Final Res ult documented in this encounter Visit Diagnoses Diagnosis Pain in joint involving right ankle and foot- Primary Pain in joint involving right ankle and foot documented in this encounter Care Teams Communications Planner Relationship Specialty Start Date End Date Toney Pires MD [address] [place] [address] [place] [address] PCP - General Internal Medicine 04/05/21 documented as of this encounter Additional Source Comments The information contained in this document represents components of the legal health record. It is not the complete legal health record.[facility]
--- OUTSIDE RECORDS SUMMARY | 2025-03-27 08:08 | XMS_ITS | Encounter Summary ---
Author Organization [facility] Address [address] [facility] [address] [place] [address] Phone Care Team Providers Care Surgical Aide Name Role Phone Toney Pires MD Primary Care Provider Encounter Details Date Type Department Care Team (Late st Contact Info) Description 08/22/2021 Procedure Pass [facility], [address] [address] Social History Tobacco Use Types Packs/Day Years [...] on filedocumented in this encounter Care Teams Surgical Aide Relationship Specialty Start Date End Date Toney Pires MD [address] [place] [address] [place] [address] PCP - General Internal Medicine 04/05/21 documented as of this encounter Additional Source Comments The information contained in this document represents components of the legal health record. It is not the complete legal health record.[facility]
--- NOTE | 2025-03-27 08:14 | MHC.PC.OV ---
Vital Signs 03/27/25 08:19 Height 5 ft 7 in Weight 197 lb 2 oz BMI 30.9 BP 130/72 Blood Pressure Location Lt brachial Position Sitting Respiration 12 Pulse 64 Pulse Source Pulse Oximeter Temp 97.4 F Temp Source Oral Intake Visit Reasons: SUSIE from Lexis's office Intake Note: New patient visit. Sieve Grader Tender Required: No Allergies No Known Allergies Allergy (Verified 03/27/25 08:14) Tobacco use date assessed: 03/27/25 Fall risk assessment: No Falls in past year Last assessed Fall Risk: 04/22/25 Dental Screening Dental Screen Date: 03/27/25 Did you have a dental visit in the last 12 months?: Yes Did you have a dental problem in the last 6 months where you did not have access to dental care?: No Was dental information given to patient?: Patient has dentist HPI HPI Comments History of Present Illness Details 69 year old female with a past medical history of low back pain, OA, osteoporosis presenting for physical exam Following with PSS. Has had MRI. Osteoporosis on alendronate. Had shingles in 2014 Due for labs Mammo 08/11/2024 Declines colon cancer screening PCV 13 & 23 ROS CONSTITUTIONAL: Denies weight loss, fever and chills. HEENT: Denies changes in vision and hearing. RESPIRATORY: Denies SOB and cough. CV: Denies palpitations and CP GI: Denies abdominal pain, nausea, vomiting and diarrhea. : Denies dysuria and urinary frequency. MSK: Denies new myalgia and joint pain. SKIN: Denies rash and pruritus. NEUROLOGICAL: Denies headache PSYCHIATRIC: Denies recent changes in mood. PHYSICAL EXAM: GENERAL: Alert and oriented x 3. NAD EYES: EOMI. Anicteric. HENT: Moist mucous membranes. No scleral icterus. No cervical lymphadenopathy. LUNGS: Clear to auscultation bilaterally. CARDIOVASCULAR: Regular rate and rhythm. No murmur. No JVD. ABDOMEN: Soft, non-tender +bs EXTREMITIES: No edema. Non-tender. SKIN: No rashes or lesions. Warm. NEUROLOGIC: No focal neurological deficits. CN II-XII grossly intact PSYCHIATRIC: Cooperative. Appropriate mood and affect PFSH Family History (Updated 03/27/25 @ 08:18 by Arminda Draper CMA) Brother FH: mental illness Other Substance abuse Social History (Updated 03/27/25 @ 08:25 by GRACE Hull Housing: House Alcohol intake: current Patient Tobacco Use Status: Never used Tobacco e-Cigarette/Vaping Use: Never Used Second Hand Smoke Exposure: Yes (as a child) service: No Current occupational status: retired Cognitive needs: No Hearing needs: No Vision needs: Yes (stigmatism) Questionnaire PHQ-9 Over the last 2 weeks, how often have you been bothered by any of the following problems? 1. Little interest or pleasure in doing things: not at all 2. Feeling down, depressed, or hopeless: not at all 3. Trouble falling or staying asleep, or sleeping too much: not at all 4. Feeling tired or having little energy: not at all 5. Poor appetite or overeating: not at all 6. Feeling bad about yourself - or that you are a failure or have let yourself or your family down: not at all 7. Trouble concentrating on things, such as reading the newspaper or watching television: not at all 8. Moving or speaking so slowly that other people could have noticed. Or the opposite - being so fidgety or restless that you have been moving around a lot more than usual: not at all 9. Thoughts that you would be better off or of hurting yourself in some way: not at all Total score: 0 Depression Screening Interpretation: Negative Depression Screening Done: Yes [address] - PHQ-9 Billing: Yes Source: Developed by Drs. Viraj Quevedo, Radha Martinez, Star Suero and colleagues, with an educational vonnie from [employer]. Thrive Questionnaire Date Thrive assessed: 03/20/25 I am a: Patient What is your living situation today?: I have a steady place to live Within the past 12 months, did the food you bought not last and you didn't have the money to get more?: Never true Within the past 12 months, did you worry whether your food would run out before you got money to buy more?: Never true Do you have trouble paying for medicines?: No Do you have trouble getting transportation to medical appointments?: No Do you have trouble paying your heating and electricity bill?: No Do you have trouble taking care of your child, family member or friend?: I choose not to answer this question Do you have trouble with day-to-day activities such as bathing, preparing meals, shopping, managing finances, etc.?: No Are you currently unemployed and looking for a job?: No Are you interested in more education?: No Please select the resources that you would like help with: None Currently or been in a relationship where the following occur: No concerns reported THRIVE Score: 0 AUDIT C Alcohol Use Questionnaire (AUDIT-C) 1. How often do you have a drink containing alcohol?: 4 or more times a week 2. How many drinks containing alcohol do you have on a typical day when you are drinking?: 1 or 2 3. How often do you have six or more drinks on one occasion?: Never Total Score: 4 TOMY-7 AMB Questionnaire TOMY-7 Date TOMY - 7 assessed: 03/27/25 Feeling nervous, anxious, or on edge: 0 = Not at all Not being able to stop or control worryin = Not at all Worrying too much about different things: 0 = Not at all Trouble relaxin = Not at all Being so restless that it is hard to sit still: 0 = Not at all Becoming easily annoyed or irritable: 0 = Not at all Feeling afraid as if something awful might happen: 0 = Not at all Total TOMY-7 score (0-4 normal; 5-9 mild; 10-14 moderate; 15-21 severe): 0 Source: Developed by Drs. Viraj Quevedo, Radha Martinez, Star Suero and colleagues, with an educational vonnie from [employer]. Physical exam (Primary Care) Vital Signs: Last Vital Signs Temp 97.4 F 03/27/25 08:19 Pulse 64 03/27/25 08:19 Resp 12 03/27/25 08:19 BP 130/72 03/27/25 08:19 BMI result Body Mass Index 30.9 Tobacco/Smoking Status: Tobacco use Status Tobacco use date assessed 03/27/25 03/27/25 08:19 Patient Tobacco Use Status Never used Tobacco 03/27/25 08:25 e-Cigarette/Vaping Use Never Used 03/27/25 08:19 PHQ-9: PHQ-9 Score PHQ-9: Total score 0 03/27/25 08:43 Depression Screening Interpretation: Negative Thrive Assessment: Date of Thrive Assessment Date Thrive assessed 03/20/25 03/27/25 08:14 Currently or been in a relationship where the following occur: No concerns reported Coding Level of Care Code New Pt Level 4 (16954) Complex EM visit Add On G2211 Diagnoses Encounter to establish care Z76.89 Dyslipidemia E78.5 Osteoporosis, unspecified osteoporosis type, unspecified pathological fracture presence M81.0 Osteoporosis type: unspecified Presence of current pathological fracture: unspecified Borderline abnormal TFTs R94.6 Additional Codes PHQ-9 - 33033 - PHQ-9 Billing: Yes ([id number]) Assessment & Plan Assessment & Plan (1) Encounter to establish care: Code(s): Z76.89 - Persons encountering health services in other specified circumstances (2) Dyslipidemia: Code(s): E78.5 - Hyperlipidemia, unspecified Category: Medical (3) Osteoporosis: Code(s): M81.0 - Age-related osteoporosis without current pathological fracture Category: Medical Qualifiers: Osteoporosis type: unspecified Presence of current pathological fracture: unspecified Qualified Code(s): M81.0 - Age-related osteoporosis without current pathological fracture (4) Borderline abnormal TFTs: Code(s): R94.6 - Abnormal results of thyroid function studies Category: Medical Plan 69 year old to establish care past medical, surgical, social reviewed osteoporosis-c/w fosamax Back pain-continue follow up PSS. Flexeril infrequent prn Mammo utd. declines colon cancer screening Orders: Orders Comprehensive Met. Panel Today E78.5 - Hyperlipidemia, unspecified, M81.0 - Age-related osteoporosis without current pathological fracture, R35.89 - Other polyuria, R94.6 - Abnormal results of thyroid function studies, Z13.0 - Encounter for screening for diseases of the blood and blood-forming organs and certain disorders involving the immune mechanism, Z13.228 - Encounter for screening for other metabolic disorders Lipid Panel Today E78.5 - Hyperlipidemia, unspecified, M81.0 - Age-related osteoporosis without current pathological fracture, R35.89 - Other polyuria, R94.6 - Abnormal results of thyroid function studies, Z13.0 - Encounter for screening for diseases of the blood and blood-forming organs and certain disorders involving the immune mechanism, Z13.228 - Encounter for screening for other metabolic disorders Vitamin D 1,25 dihydroxy Today E78.5 - Hyperlipidemia, unspecified, M81.0 - Age-related osteoporosis without current pathological fracture, R35.89 - Other polyuria, R94.6 - Abnormal results of thyroid function studies, Z13.0 - Encounter for screening for diseases of the blood and blood-forming organs and certain disorders involving the immune mechanism, Z13.228 - Encounter for screening for other metabolic disorders Rheumatoid Factor Today M25.50 - Pain in unspecified joint, M81.0 - Age-related osteoporosis without current pathological fracture XR DEXA axial skeleton 4 Months M81.0 - Age-related osteoporosis without current pathological fracture MM tomosynthesis screening BI 4 Months Z12.31 - Encounter for screening mammogram for malignant neoplasm of breast Complete Blood Count Auto Diff Today E78.5 - Hyperlipidemia, unspecified, M81.0 - Age-related osteoporosis without current pathological fracture, R35.89 - Other polyuria, R94.6 - Abnormal results of thyroid function studies, Z13.0 - Encounter for screening for diseases of the blood and blood-forming organs and certain disorders involving the immune mechanism, Z13.228 - Encounter for screening for other metabolic disorders TSH reflex Free T4 Today E78.5 - Hyperlipidemia, unspecified, M81.0 - Age-related osteoporosis without current pathological fracture, R35.89 - Other polyuria, R94.6 - Abnormal results of thyroid function studies, Z13.0 - Encounter for screening for diseases of the blood and blood-forming organs and certain disorders involving the immune mechanism, Z13.228 - Encounter for screening for other metabolic disorders Hemoglobin A1c Today E78.5 - Hyperlipidemia, unspecified, M81.0 - Age-related osteoporosis without current pathological fracture, R35.89 - Other polyuria, R94.6 - Abnormal results of thyroid function studies, Z13.0 - Encounter for screening for diseases of the blood and blood-forming organs and certain disorders involving the immune mechanism, Z13.228 - Encounter for screening for other metabolic disorders Referrals Cologuard Test Z12.11 - Encounter for screening for malignant neoplasm of colon, Z12.12 - Encounter for screening for malignant neoplasm of rectum Medications: Discontinued erythromycin Discontinued Reason: Patient Completed Course 1 appl ophthalmic-Right QID 7 days 3.5 grams 0RF
[2025-03-27 08:19] VITALS: BP 130/72; PULSE 64; RESP 12; TEMP 36.3; BMI 30.9
== END 2025-03-27 09:04 | disposition home or self-care (01) ==
LOC: HO.HMCFM 08:04
PROVIDERS: PCP Internal Medicine; Visit Provider Internal Medicine
DX: Z76.89 Persons encountering health services in other specified circumstances (principal); E78.5 Hyperlipidemia, unspecified; M81.0 Age-related osteoporosis without current pathological fracture; R94.6 Abnormal results of thyroid function studies

== ENCOUNTER → 2025-03-27 08:04 | Outpatient (BNVA) | payer MEDICARE, SELFPAY | PROVIDERS: PCP Internal Medicine; Visit Provider Internal Medicine | DX: Z76.89 Persons encountering health services in other specified circumstances (principal); E78.5 Hyperlipidemia, unspecified; M81.0 Age-related osteoporosis without current pathological fracture; R94.6 Abnormal results of thyroid function studies; Z13.31 Encounter for screening for depression; Z13.39 Encounter for screening examination for other mental health and behavioral disorders | CPT/HCPCS: 96127; 99202 ==

== ENCOUNTER 2025-04-02 07:46 | Outpatient (REF) | payer MEDICARE, SELFPAY ==
--- OUTSIDE RECORDS SUMMARY | 2025-04-02 07:49 | XMS_ITS | Encounter Summary ---
Author Organization [facility] Address [address] [place] [address] [place] [phone] Phone Care Team Providers Care Sales And Marketing Analyst Name Role Phone Toney Pires MD Primary Care Provider Encounter Details Date Type Department Care Team (Late st Contact Info) Description 02/18/2025 Ancillary Orders [facility], X-Ray - [address] [address] Nataliia Rollins NP [address] [place] [phone] [email or web address] Pain in joint involving right ankle and [...] No fracture or dislocation. us Nataliia Rollins COMBO WELDER IMG XR LOWER EXTREMITY Final Res ult documented in this encounter Visit Diagnoses Diagnosis Pain in joint involving right ankle and foot- Primary Pain in joint involving right ankle and foot documented in this encounter Care Teams Sales And Marketing Analyst Relationship Specialty Start Date End Date Toney Pires MD [address] [place] [address] [place] [address] PCP - General Internal Medicine 04/05/21 documented as of this encounter Additional Source Comments The information contained in this document represents components of the legal health record. It is not the complete legal health record.[facility]
--- OUTSIDE RECORDS SUMMARY | 2025-04-02 07:49 | XMS_ITS | Encounter Summary ---
Author Organization [facility] Address [address] [facility] [address] [place] [address] Phone Care Team Providers Care Medical Lab Technician Name Role Phone Toney Pires MD Primary Care Provider Encounter Details Date Type Department Care Team (Late st Contact Info) Description 08/22/2021 Procedure Pass [facility], [address] [address] Social History Tobacco Use Types Packs/Day Years [...] on filedocumented in this encounter Care Teams Medical Lab Technician Relationship Specialty Start Date End Date Toney Pires MD [address] [place] [address] [place] [address] PCP - General Internal Medicine 04/05/21 documented as of this encounter Additional Source Comments The information contained in this document represents components of the legal health record. It is not the complete legal health record.[facility]
--- OUTSIDE RECORDS SUMMARY | 2025-04-02 07:49 | XMS_ITS | Clinical Summary ---
Author Organization [facility] Address [address] [place], [place] [id number] Phone Care Team Providers Care Fountain Helper Name Role Phone Toney Pires MD Primary Care Provider Encounters Date Type Department Care Team Description 02/18/2025 10:33 AM EDT - 02/18/2025 11:59 PM EDT Hospital Encounter [address] [address] Nataliia Rollins NP Discharge Disposition: Home or Self Care 02/18/2025 10:31 AM EDT - 02/18/2025 10:32 AM EDT Hospital Encounter [address] [address] Nataliia Rollins NP Discharge Disposition: Home or Self Care 02/18/2025 Ancillary Orders [address] [address] Nataliia Rollins NP Pain in joint involving right ankle and foot (Primary Dx) 02/18/2025 Ancillary Orders [address] [address] Nataliia Rollins NP Pain of joint of [...] on patient's age to complete this topic IPV VACCINES Aged Out No longer eligi ble [...] IMPRESSION: No fracture or dislocation. Nataliia Rollins STUDENT TRUCK DRIVER IMG XR LOWER EXTREMITY Final Res ult [...] Months Insurance MEDICARE PART A & B [employer] MEDEX SUPPLEMENT MEDICARE PART A & B [employer] MEDEX SUPPLEMENT MEDICARE PART A & B [employer] MEDEX SUPPLEMENT MEDICARE PART A & B [employer] MEDEX SUPPLEMENT MEDICARE PART A & B [employer] MEDEX SUPPLEMENT MEDICARE PART A & B [employer] MEDEX SUPPLEMENT MEDICARE PART A & B [employer] MEDEX SUPPLEMENT MEDICARE PART A & B [employer] MEDEX SUPPLEMENT MEDICARE PART A & B [employer] MEDEX SUPPLEMENT Member Subscriber Plan / Payer ( fective 2018-Present) Name:Ciera Spencer Relation to Subscriber:Self Name:Ciera Spencer Payer ID:[id number] (NAIC) Type:Indemnity Address: [facility] [id number] [place] [id number] Care Teams Fountain Helper Relationship Specialty Start Date End Date Toney Pires MD [address] [place] [address] Dr [address] [place], [place] [id number] PCP - General Internal Medicine 04/05/21 Additional Source Comments The information contained in this document represents components of the legal health record. It is not the complete legal health record.[facility]
--- OUTSIDE RECORDS SUMMARY | 2025-04-02 07:49 | XMS_ITS | Encounter Summary ---
Author Organization [facility] Address [address] [facility] [address] [place] [address] Phone Care Team Providers Care Ditch Inspector Name Role Phone Toney Pires MD Primary Care Provider Encounter Details Date Type Department Care Team (Late st Contact Info) Description 03/28/2021 Procedure Pass [facility], [address] [address] Social History Tobacco Use Types Packs/Day Years [...] on filedocumented in this encounter Care Teams Ditch Inspector Relationship Specialty Start Date End Date Toney Pires MD [address] [place] [address] [place] [address] PCP - General Internal Medicine 04/05/21 documented as of this encounter Additional Source Comments The information contained in this document represents components of the legal health record. It is not the complete legal health record.[facility]
--- OUTSIDE RECORDS SUMMARY | 2025-04-02 07:49 | XMS_ITS | Encounter Summary ---
Author Organization [facility] Address [address] [place] [address] Phone Care Team Providers Care Certified Hearing Instrument Dispenser Name Role Phone Toney Pires MD Primary Care Provider Reason for Referral * MRI/CAT Scan - Closed Specialty Diagnoses / Procedures Referred By Contac t Referred To Contact Radiology Diagnoses Other intervertebral disc degeneration, lumbar region Procedures MRI Lumbar Spine Nataliia Rollins NP [address] [place] [address] Phone: tel: fax: [email or web address] Referral ID Status Reason Start Date Expiration Date Visits Re quested Visits Authorized [id number] Closed 03/28/2021 03/28/2022 1 1 Encounter Details Date Type Department Care Team (Latest Contact Info) Description 03/28/2021 Transcribe Orders Virtual Department [address] [place] [address] Nataliia Rollins NP [address] [place] [phone] [email or web address] Other intervertebral disc degeneration, lumbar region (Primary [...] body without endplate involvement. The lesion is [id number] and T2/STIR hyperintense. Conus: Normal position at [...] region documented in this encounter Care Teams Certified Hearing Instrument Dispenser Relationship Specialty Start Date End Date Toney Pires MD [address] [place] [address] [place] [address] PCP - General Internal Medicine 04/05/21 documented as of this encounter Additional Source Comments The information contained in this document represents components of the legal health record. It is not the complete legal health record.[facility]
--- OUTSIDE RECORDS SUMMARY | 2025-04-02 07:49 | XMS_ITS | Encounter Summary ---
Author Organization [facility] Address [address] [place] [address] [place] [address] Phone Care Team Providers Care Cash Accounting Clerk Name Role Phone Toney Pires MD Primary Care Provider Encounter Details Date Type Department Care Team (Late st Contact Info) Description 02/18/2025 Ancillary Orders [facility], X-Ray - [address] [address] Nataliia Rollins NP [address] [place] [phone] [email or web address] Pain of joint of left ankle and [...] clinician's provided indication for this examination in [facility]: Pain COMPARISON: None FINDINGS: Left ankle: No [...] No fracture or dislocation. us Nataliia Rollins COVER SEAMER IMG XR LOWER EXTREMITY Final Res ult documented in this encounter Visit Diagnoses Diagnosis Pain of joint of left ankle and foot- Primary Pain of joint of left ankle and foot documented in this encounter Care Teams Cash Accounting Clerk Relationship Specialty Start Date End Date Toney Pires MD [address] [place] [address] [place] [address] PCP - General Internal Medicine 04/05/21 documented as of this encounter Additional Source Comments The information contained in this document represents components of the legal health record. It is not the complete legal health record.[facility]
[2025-04-02 07:58] LABS: MANUAL DIFF FLAG NO
[2025-04-02 08:15] LABS: Hematocrit 41.3 % (37.0-47.0); Hemoglobin 13.7 g/dl (12.0-16.0); Imm Gran Abs Auto 0.01 X10*3/uL (0.00-0.03); Imm Gran Pct Auto 0.2 % (0.0-0.4); Lymphocytes Absolute Auto 1.6 X10*3/uL (1.2-4.9); Mean Corpuscular HGB Conc 33.2 g/dl (31.0-35.0); Mean Corpuscular Hemoglobin 31.9 pg (27.0-33.0); Mean Corpuscular Volume 96.3 fL (80.0-98.0); NRBC Abs Auto 0.000 X10*3/uL (0.0-0.012); NRBC Pct Auto 0.0 /100WBC (0.0-0.2); Platelet Count 304 X10*3/uL (160-400); Red Blood Count 4.29 X10*6/uL (4.20-5.50); White Blood Count 5.2 X10*3/uL (4.8-10.8)
[2025-04-02 12:20] LABS: Alanine Aminotransferase 18 U/L (0-31); Albumin Level 4.5 g/dL (3.5-5.0); Alkaline Phosphatase 48 U/L (39-117); Anion Gap 14 (12-20); Aspartate Amino Transferase 26 U/L (5-31); Blood Urea Nitrogen 20 mg/dL (9-16); Calcium 9.3 mg/dL (8.4-10.2); Carbon Dioxide 27 mmol/L (22-29); Chloride 105 mmol/L (96-108); Cholesterol 238 mg/dL (<200); Estimated Glomerular Filt Rate > 60; HDL Cholesterol 72 mg/dL (>40); Potassium 4.1 mmol/L (3.3-5.1); Sodium 142 mmol/L (135-145); Total Protein 7.3 g/dL (6.5-8.0); Triglycerides 85 mg/dL (<150)
[2025-04-06 15:33] LABS: VITAMIN D (1,25 OH) D3 34 pg/mL; Vit D (1,25-Dihydroxy) Total 34 pg/mL (18-72); Vitamin D (1,25 OH) D2 <8 pg/mL
== END 2025-04-02 07:47 | disposition home or self-care (01) ==
LOC: HO.LAB 07:46
PROVIDERS: PCP Internal Medicine; Visit Provider Internal Medicine
DX: Z13.0 Encounter for screening for diseases of the blood and blood-forming organs and certain disorders involving the immune mechanism (principal); Z13.228 Encounter for screening for other metabolic disorders; M81.0 Age-related osteoporosis without current pathological fracture; E78.5 Hyperlipidemia, unspecified; R35.89 Other polyuria; M25.50 Pain in unspecified joint; R94.6 Abnormal results of thyroid function studies; Z13.21 Encounter for screening for nutritional disorder; Z13.1 Encounter for screening for diabetes mellitus
CPT/HCPCS: 36415; 80053; 80061; 82652; 83036; 84443; 85025; 86431

== ENCOUNTER 2025-05-13 08:27 | Outpatient (AMB) | payer MEDICARE, SELFPAY ==
--- OUTSIDE RECORDS SUMMARY | 2025-05-13 08:30 | XMS_ITS | Encounter Summary ---
Author Organization [facility] Address [address] [place] [address] Phone Care Team Providers Care Printmaker Name Role Phone Toney Pires MD Primary Care Provider Reason for Referral * MRI/CAT Scan - Closed Specialty Diagnoses / Procedures Referred By Contac t Referred To Contact Radiology Diagnoses Other intervertebral disc degeneration, lumbar region Procedures MRI Lumbar Spine Nataliia Rollins NP [address] [place] [address] Phone: tel: fax: [email or web address] Referral ID Status Reason Start Date Expiration Date Visits Re quested Visits Authorized [id number] Closed 03/28/2021 03/28/2022 1 1 Encounter Details Date Type Department Care Team (Latest Contact Info) Description 03/28/2021 Transcribe Orders Virtual Department [address] [place] [address] Nataliia Rollins NP [address] [place] [phone] [email or web address] Other intervertebral disc degeneration, lumbar region (Primary [...] body without endplate involvement. The lesion is [id number] and T2/STIR hyperintense. Conus: Normal position at [...] region documented in this encounter Care Teams Printmaker Relationship Specialty Start Date End Date Toney Pires MD [address] [place] [address] [place] [address] PCP - General Internal Medicine 04/05/21 documented as of this encounter Additional Source Comments The information contained in this document represents components of the legal health record. It is not the complete legal health record.[facility]
--- OUTSIDE RECORDS SUMMARY | 2025-05-13 08:30 | XMS_ITS | Encounter Summary ---
Author Organization [facility] Address [address] [place] [address] [place] [address] Phone Care Team Providers Care Preparation Operator Name Role Phone Toney Pires MD Primary Care Provider Encounter Details Date Type Department Care Team (Late st Contact Info) Description 02/18/2025 Ancillary Orders [facility], X-Ray - [address] [address] Nataliia Rollins NP [address] [place] [phone] [email or web address] Pain of joint of left ankle and [...] No fracture or dislocation. us Nataliia Rollins SUPERCHARGER REPAIR SUPERVISOR IMG XR LOWER EXTREMITY Final Res ult documented in this encounter Visit Diagnoses Diagnosis Pain of joint of left ankle and foot- Primary Pain of joint of left ankle and foot documented in this encounter Care Teams Preparation Operator Relationship Specialty Start Date End Date Toney Pires MD [address] [place] [address] [place] [address] PCP - General Internal Medicine 04/05/21 documented as of this encounter Additional Source Comments The information contained in this document represents components of the legal health record. It is not the complete legal health record.[facility]
--- OUTSIDE RECORDS SUMMARY | 2025-05-13 08:30 | XMS_ITS | Encounter Summary ---
Author Organization [facility] Address [address] [facility] [address] [place] [address] Phone Care Team Providers Care Hydrologist Name Role Phone Toney Pires MD Primary Care Provider Encounter Details Date Type Department Care Team (Late st Contact Info) Description 03/28/2021 Procedure Pass [facility], [address] [address] Social History Tobacco Use Types Packs/Day Years [...] on filedocumented in this encounter Care Teams Hydrologist Relationship Specialty Start Date End Date Toney Pires MD [address] [place] [address] [place] [address] PCP - General Internal Medicine 04/05/21 documented as of this encounter Additional Source Comments The information contained in this document represents components of the legal health record. It is not the complete legal health record.[facility]
--- OUTSIDE RECORDS SUMMARY | 2025-05-13 08:30 | XMS_ITS | Encounter Summary ---
Author Organization [facility] Address [address] [place] [address] [place] [address] Phone Care Team Providers Care Shredding Machine Knife Changer Name Role Phone Toney Pires MD Primary Care Provider Encounter Details Date Type Department Care Team (Late st Contact Info) Description 02/18/2025 Ancillary Orders [facility], X-Ray - [address] [address] Nataliia Rollins NP [address] [place] [phone] [email or web address] Pain in joint involving right ankle and [...] No fracture or dislocation. us Nataliia Rollins BED SETTER IMG XR LOWER EXTREMITY Final Res ult documented in this encounter Visit Diagnoses Diagnosis Pain in joint involving right ankle and foot- Primary Pain in joint involving right ankle and foot documented in this encounter Care Teams Shredding Machine Knife Changer Relationship Specialty Start Date End Date Toney Pires MD [address] [place] [address] [place] [address] PCP - General Internal Medicine 04/05/21 documented as of this encounter Additional Source Comments The information contained in this document represents components of the legal health record. It is not the complete legal health record.[facility]
--- OUTSIDE RECORDS SUMMARY | 2025-05-13 08:30 | XMS_ITS | Encounter Summary ---
Author Organization [facility] Address [address] [facility] [address] [place] [address] Phone Care Team Providers Care Breaker Boss Name Role Phone Toney Pires MD Primary Care Provider Encounter Details Date Type Department Care Team (Late st Contact Info) Description 08/22/2021 Procedure Pass [facility], [address] [address] Social History Tobacco Use Types Packs/Day Years [...] on filedocumented in this encounter Care Teams Breaker Boss Relationship Specialty Start Date End Date Toney Pires MD [address] [place] [address] [place] [address] PCP - General Internal Medicine 04/05/21 documented as of this encounter Additional Source Comments The information contained in this document represents components of the legal health record. It is not the complete legal health record.[facility]
--- OUTSIDE RECORDS SUMMARY | 2025-05-13 08:30 | XMS_ITS | Clinical Summary ---
Author Organization [facility] Address [address] [place], [place] [phone] Phone Care Team Providers Care Pop Singer Name Role Phone Toney Pires MD Primary Care Provider Encounters Date Type Department Care Team Description 02/18/2025 10:33 AM EDT - 02/18/2025 11:59 PM EDT Hospital Encounter [address] [address] Nataliia Rollins NP Discharge Disposition: Home or Self Care 02/18/2025 10:31 AM EDT - 02/18/2025 10:32 AM EDT Hospital Encounter [address] [address] Nataliia Rollins NP Discharge Disposition: Home or Self Care 02/18/2025 Ancillary Orders [address] [address] Nataliia Rollins NP Pain in joint involving right ankle and foot (Primary Dx) 02/18/2025 Ancillary Orders [address] [address] Nataliia Rollins NP Pain of joint of [...] No fracture or dislocation. us Nataliia Rollins JAIL MANAGER IMG XR LOWER EXTREMITY Final Res ult [...] Months Insurance MEDICARE PART A & B [employer] MEDEX SUPPLEMENT MEDICARE PART A & B [employer] MEDEX SUPPLEMENT MEDICARE PART A & B Member Subscriber Plan / Payer (Ef fective 2019-Present) Name:Ciera Spencer Member ID:[id number] Relation to Subscriber:Self Name:Ciera Spencer Subscriber ID:[id number] Payer ID:[id number] Group ID:Not on file Type:Medicare Address: [employer] [address] [place] [address] [employer] MEDEX SUPPLEMENT MEDICARE PART A & B Member Subscriber Plan / Payer (Ef fective 2019-Present) Name:Ciera Spencer Member ID:[id number] Relation to Subscriber:Self Name:Ciera Spencer Subscriber ID:[id number] Payer ID:[id number] Group ID:Not on file Type:Medicare Address: [employer] [address] [place] [phone] [employer] MEDEX SUPPLEMENT MEDICARE PART A & B Member Subscriber Plan / Payer ( fective 2019-Present) Name:TjCiera Member ID:[id number] Relation to Subscriber:Self Name:LetafernandaCiera Subscriber ID:[id number] Payer ID:[id number] Group ID:Not on file Type:Medicare Address: [employer] [address] [place] [address] [employer] MEDEX SUPPLEMENT MEDICARE PART A & B Member Subscriber Plan / Payer ( fective 2019-Present) Name:Ciera Spencer Member ID:[id number] Relation to Subscriber:Self Name:TjCiera Subscriber ID:[id number] Payer ID:[id number] Group ID:Not on file Type:Medicare Address: [employer] [address] [place] [address] [employer] MEDEX SUPPLEMENT MEDICARE PART A & B Member Subscriber Plan / Payer (Ef fective 2019-Present) Name:Ciera Spencer Member ID:[id number] Relation to Subscriber:Self Name:Tj Ciera Subscriber ID:[id number] Payer ID:[id number] Group ID:Not on file Type:Medicare Address: [employer] [address] [place] [phone] [employer] MEDEX SUPPLEMENT MEDICARE PART A & B Member Subscriber Plan / Payer (Ef fective 2019-) Name:Ciera Spencer Member ID:[id number] Relation to Subscriber:Self Name:Ciera Spencer Subscriber ID:[id number] Payer ID:[id number] Group ID:Not on file Type:Medicare Address: [employer] [address] [place] [phone] [employer] MEDEX SUPPLEMENT MEDICARE PART A & B [employer] MEDEX SUPPLEMENT Care Teams Pop Singer Relationship Specialty Start Date End Date Toney Pires MD [address] [place] [address] [place] [address] PCP - General Internal Medicine 04/05/21 Additional Source Comments The information contained in this document represents components of the legal health record. It is not the complete legal health record.[facility]
--- NOTE | 2025-05-13 08:34 | MHC.OFFVIS ---
Intake Visit Reasons: Colonoscopy screening + cologuard Intake Note: Patient new consult for 1st pre Colonoscopy screening. Cologuard positive. Iron Pellet Tester Required: No Accompanied by: Self / Same As Patient Allergies monosodium glutamate (MSG) Adverse Reaction (Mild, Verified 05/13/25 09:05) [place] Medication List - Last Reconciled 05/13/25 by Carole Jade CNP alendronate 35 mg PO QWEEK aspirin 81 mg PO DAILY B-complex with vitamin C 1 tab PO DAILY cholecalciferol (vitamin D3) 125 mcg PO .every other day cyclobenzaprine 10 mg PO BID PRN HPI HPI Colonoscopy screening + cologuard: Details: Patient is a 69-year-old male with PMH of dyslipidemia, osteoporosis. Referred by PCP for positive Cologuard The test sample was collected on April 06 2025. The patient has never had a colonoscopy before. 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 She expresses significant anxiety about undergoing a colonoscopy, specifically fearing pain from twisting movements during the procedure due to her spinal condition. She has no personal history of cancer. Recent lab work revealed elevated cholesterol, which the patient was aware of. Her total cholesterol is 238, and her LDL has been 140 or higher since 2022. Her weight has been stable in the 190s after she lost 30 pounds five years ago. The patient reports a historical reaction to Malaysian food in her 20s, characterized by becoming red and hot, which was diagnosed as an MSG allergy. Patient denies: fever/chills, n/v, appetite changes, pyrosis, regurgitation,dysphasia, unintentional wt loss, ab pain or melena/hematochezia. Social hx: -ETOH use 1-2 beers/day -denies recreational drug use -non-smoker - family hx as below -denies personal hx of CA -denies significant cardiopulmonary history -tolerated anesthesia in the past without difficulty. PFSH Medical History (Updated 05/13/25 @ 09:21 by Carole Jade CNP) Hyperlipemia Family History Brother FH: mental illness Other Substance abuse Social History Housing: House Alcohol intake: current Patient Tobacco Use Status: Never used Tobacco e-Cigarette/Vaping Use: Never Used Second Hand Smoke Exposure: Yes (as a child) service: No Current occupational status: retired Cognitive needs: No Hearing needs: No Vision needs: Yes (stigmatism) Review of Systems Const Reports as per [facility] ENT Reports as per HPI Card Reports as per HPI Resp Reports as per HPI GI Reports as per [facility] Reports as per HPI Physical Exam Const General: healthy appearing, no acute distress and well developed Nutritional Appearance: average body habitus Orientation/consciousness: patient oriented x3 HEENT Head: Yes normal to inspection, Yes normocephalic and Yes atraumatic Face and sinus: Yes normal facial exam Eyes General: appearance normal, both eyes and all related structures Neck Neck: Yes normal visual inspection Resp Effort & Inspection: normal respiratory effort, able to speak in complete sentences, no tracheal deviation and symmetric chest movement Cardio Jugular venous distension: no JVD Neuro General: patient oriented x3 Gait exam (Neuro): Normal gait present Psych Appearance: grossly normal Mental Status: mental status grossly normal Speech and movement: Normal speech and movement present Affect: normal affect Attitude: cooperative Thought process: Normal thought process present Thought content: Normal thought content present Insight: Good insight present (Psych) Judgement: Good judgement present (Psych) Assessment & Plan Assessment & Plan (1) Positive colorectal cancer screening using Cologuard test: Comment: collected 04/06/25 Code(s): R19.5 - Other fecal abnormalities Category: Medical Plan: A colonoscopy is indicated to investigate the positive Cologuard result for potential polyps, mass, or malignancy. - The procedure should be completed within six months, by September 2025. - A note will be added to the colonoscopy order to be mindful of the patient's positioning due to her concerns about spinal arthritis. - The patient will be scheduled for a MiraLax split-dose preparation. - Instructions were provided for the prep, including mixing a full bottle of MiraLax with 64 oz of Gatorade, taking prescribed laxative tablets, following a clear liquid diet, and avoiding red, blue, or purple liquids. - The patient understands to hold 81 mg aspirin starting 7 days p/t procedure. - The scheduling team will contact the patient to arrange the procedure date and a follow-up appointment. (2) Hyperlipemia: Code(s): E78.5 - Hyperlipidemia, unspecified Category: Medical Qualifiers: Hyperlipidemia type: mixed hyperlipidemia Qualified Code(s): E78.2 - Mixed hyperlipidemia Plan: Acknowledged the patient's elevated total cholesterol (238) and LDL cholesterol (>140). - Discussed the risk of developing fatty liver disease and its reversibility. - Encouraged a follow-up conversation with her primary care provider for management. - Advised to continue lifestyle modifications, including a well-balanced diet with good fats, minimizing processed and fried foods, and regular exercise to promote weight loss. Plan Follow-up after colonoscopy or sooner as needed Time: I spent a total of 30 minutes on the date of encounter which includes: Preparing to see the patient (reviewed previous documentation, test results and medical history) Performing a medically appropriate exam and/or evaluation Ordering medications, tests, and procedures Documenting clinical information in the health record Orders: Referrals GI Procedure Notification R19.5 - Other fecal abnormalities Medications: New bisacodyl take four tablets once day of colonoscopy prep 20 mg (4 x 5 mg) PO ONCE 4 tabs 0RF polyethylene glycol 3350 (Miralax) per colonoscopy prep instructions 238 grams PO ONCE 238 grams 0RF Coding Level of Care Code New Pt New Pt Level 3 (58065) Patient Type New Diagnoses Positive colorectal cancer screening using Cologuard test R19.5 Mixed hyperlipidemia E78.2 Hyperlipidemia type: mixed hyperlipidemia
== END 2025-05-13 09:14 | disposition home or self-care (01) ==
LOC: HO.HGI 08:28
PROVIDERS: PCP Internal Medicine; Visit Provider Nurse Practitioner Family
DX: R19.5 Other fecal abnormalities (principal); E78.2 Mixed hyperlipidemia
CPT/HCPCS: 99203

== ENCOUNTER → 2025-05-13 08:27 | Outpatient (BNVA) | payer MEDICARE, SELFPAY | PROVIDERS: PCP Internal Medicine; Visit Provider Nurse Practitioner Family | DX: E78.2 Mixed hyperlipidemia (principal); R19.5 Other fecal abnormalities; Z79.82 Long term (current) use of aspirin | CPT/HCPCS: 99202 ==